=== PATIENT | male | born 1990 | race Caucasian/White ===

== ENCOUNTER 2020-09-12 16:28 | Emergency (ER) | payer OTHER ==
[~2020-09-12] VITALS: Ht 177.8 cm; Wt 129.0 kg
[2020-09-12 16:29] VITALS: BP 147/95
[2020-09-12] MEDS ORDERED: IBUP200T45 PO (16:43)
[2020-09-12] MEDS ORDERED: KETOROLAC TROMETHAMINE 10 MG TAB PO ONE (17:00)
== END 2020-09-12 17:53 | disposition home or self-care (01) ==
LOC: M ED 16:28
DX: S29.011A Strain of muscle and tendon of front wall of thorax, initial encounter (principal); X50.0XXA Overexertion from strenuous movement or load, initial encounter; Y92.9 Unspecified place or not applicable; Y93.B3 Activity, free weights; Y99.9 Unspecified external cause status

== ENCOUNTER 2022-12-30 19:46 | Emergency (ER) | payer OTHER ==
[~2022-12-30] VITALS: Ht 177.8 cm; Wt 99.4 kg
[~2022-12-30 19:46] MED LIST: IBUP200T46 PO
[2022-12-30 23:30] VITALS: BP 128/87
[2022-12-30] MEDS ORDERED: TETRACAINE 0.5% OPHTH SOLN 4ML OS ONE (23:35)
[2022-12-30] MEDS ORDERED: FLUORESCEIN OPHTH 1MG STRIP OS ONE (23:35)
[2022-12-31] MEDS ORDERED: ERYT5OIN25 OD (00:09)
[2022-12-31] MEDS ORDERED: ERYTHROMYCIN OPHTH OINT OD ONE (00:10)
== END 2022-12-31 00:32 | disposition home or self-care (01) ==
LOC: M ED 19:46
DX: S05.01XA Injury of conjunctiva and corneal abrasion without foreign body, right eye, initial encounter (principal); Y99.0 Civilian activity done for income or pay; Z79.2 Long term (current) use of antibiotics